=== PATIENT | female | born 1990 | race African-American/Black ===

== ENCOUNTER 2016-10-03 07:42 | Emergency (ER) | payer MEDICAID ==
[~2016-10-03] VITALS: Ht 160 cm; Wt 57.0 kg
[2016-10-03] MEDS ORDERED: METF500T4 PO (07:50)
[2016-10-03] MEDS ORDERED: ALBU18HF2 IH (07:52)
[2016-10-03] MEDS ORDERED: FAMOTIDINE 20MG/2ML VIAL IV STA (08:05)
[2016-10-03] MEDS ORDERED: SODIUM CHLORIDE 0.9% 1,000 ML IV ONE (08:05)
[2016-10-03] MEDS ORDERED: ONDANSETRON HCL 4MG/2ML VIAL IV STA (08:05)
[2016-10-03 08:38] LABS: BASOPHILS % 0.8 % (0.0-2.0); EOSINOPHILS % 0.3 % (0.0-5.0); HEMATOCRIT. 39.4 % (36.0-48.0); HEMOGLOBIN. 13.5 g/dL (12.0-16.0); LYMPHOCYTES % 15.6 % (20.0-50.0); MEAN CORPUSCULAR HEMOGLOBIN 30.2 pg (28.0-32.0); MEAN PLATELET VOLUME 8.6 fl (7.4-10.4); MONOCYTES % 13.2 % (2.0-8.0); NEUTROPHILS % 70.1 % (40.0-76.0); PLATELET 282 x1000/uL (130-400); RED BLOOD CELL COUNT 4.48 mill/uL (4.2-5.4); RED CELL DISTRIBUTION WIDTH 13.5 % (11.6-14.6)
[2016-10-03 08:50] VITALS: BP 115/75
[2016-10-03 08:50] LABS: CARBON DIOXIDE 25 mEq/L (21-32); CHLORIDE 95 mEq/L (98-107)
[2016-10-03 08:57] LABS: HCG SCREEN NEGATIVE
[2016-10-03 10:06] LABS: CLARITY URINE TURBID (CLEAR); COLOR URINE YELLOW (YELLOW); GLUCOSE URINE 3+ (NEGATIVE); KETONES URINE 4+ (NEGATIVE); LEUKOCYTE ESTERASE URINE 1+ (NEGATIVE); NITRITE URINE POSITIVE (NEGATIVE); OCCULT BLOOD URINE 3+ (NEGATIVE); PH URINE 5.5 (4.5-8.0); PROTEIN URINE 2+ (NEGATIVE); SPECIFIC GRAVITY URINE 1.037 (1.005-1.030)
== END 2016-10-03 11:31 | disposition home or self-care (01) ==
LOC: ER 08:04
DX: R10.30 Lower abdominal pain, unspecified (principal); N39.0 Urinary tract infection, site not specified; R11.2 Nausea with vomiting, unspecified; E11.65 Type 2 diabetes mellitus with hyperglycemia; M54.9 Dorsalgia, unspecified; F17.210 Nicotine dependence, cigarettes, uncomplicated; F15.10 Other stimulant abuse, uncomplicated; J45.909 Unspecified asthma, uncomplicated; Z79.84 Long term (current) use of oral hypoglycemic drugs
CPT/HCPCS: 36415; 76830; 76856; 80053; 81001; 82010; 82962; 83690; 84703; 85025; 96361; 96374; 96375; 99285; J2405; J3490; J7030; Z7610

== ENCOUNTER 2016-10-21 10:35 | Emergency (ER) | payer MEDICAID ==
[~2016-10-21 10:35] MED LIST: ALBU18HF2 IH; METF500T4 PO
== END 2016-10-21 12:55 | disposition left against medical advice (07) ==
LOC: ER 12:54
DX: R73.9 Hyperglycemia, unspecified (principal); Z53.21 Procedure and treatment not carried out due to patient leaving prior to being seen by health care provider

== ENCOUNTER 2017-03-19 14:54 | Emergency (ER) | payer SELFPAY ==
[~2017-03-19] VITALS: Ht 162.6 cm; Wt 50.0 kg
[2017-03-19] MEDS ORDERED: SODIUM CHLORIDE 0.9% 1,000 ML IV ONE (15:23)
[2017-03-19 16:01] LABS: HEMATOCRIT. 37.7 % (36.0-48.0); HEMOGLOBIN. 12.8 g/dL (12.0-16.0); MEAN CORPUSCULAR HEMOGLOBIN 31.3 pg (28.0-32.0); MEAN PLATELET VOLUME 8.9 fl (7.4-10.4); PLATELET 305 x1000/uL (130-400); RED BLOOD CELL COUNT 4.09 mill/uL (4.2-5.4); RED CELL DISTRIBUTION WIDTH 13.9 % (11.6-14.6)
[2017-03-19 16:15] LABS: CARBON DIOXIDE 26 mEq/L (21-32); CHLORIDE 99 mEq/L (98-107)
[2017-03-19 16:20] LABS: PLATELET ESTIMATE NORMAL
[2017-03-19] MEDS ORDERED: INSULIN REGULAR (HUMULIN R) 300UNITS/3ML IV ONE (16:30)
[2017-03-19] MEDS ORDERED: METFORMIN HCL 500MG TABLET PO ONE (16:30)
[2017-03-19 17:45] VITALS: BP 108/70
== END 2017-03-19 17:46 | disposition home or self-care (01) ==
LOC: ER 15:01
DX: E11.65 Type 2 diabetes mellitus with hyperglycemia (principal); J45.909 Unspecified asthma, uncomplicated; F15.10 Other stimulant abuse, uncomplicated; Z98.890 Other specified postprocedural states; Z79.84 Long term (current) use of oral hypoglycemic drugs
CPT/HCPCS: 36415; 80053; 82962; 85025; 96361; 96374; 99285; J1815; J7030